=== PATIENT | male | born 1980 | race Caucasian/White ===

== ENCOUNTER 2021-07-19 22:52 | Emergency (ER) | payer MEDICAID ==
[~2021-07-19] VITALS: Ht 167.6 cm; Wt 109.1 kg
[2021-07-20] MEDS ORDERED: PB/HYOSCY/ATR/SCOP/LIDO/MAALOX 55 ML BOTTLE PO ONE (00:45)
[2021-07-20 01:19] LABS: COVID AG,FIA SOURCE NASAL SWAB
[2021-07-20 05:48] VITALS: BP 135/82
== END 2021-07-20 05:55 | disposition home or self-care (01) ==
LOC: EMS 22:55
DX: T17.228A Food in pharynx causing other injury, initial encounter (principal); X58.XXXA Exposure to other specified factors, initial encounter; Y93.89 Activity, other specified; Y92.89 Other specified places as the place of occurrence of the external cause; Y99.8 Other external cause status; Z20.822 Contact with and (suspected) exposure to COVID-19
CPT/HCPCS: 70490; 87430; 99284; Z7502; Z7610